=== PATIENT | male | born 1980 | race American Indian/Alaskan Native ===

== ENCOUNTER 2016-12-02 18:43 | Emergency (ER) | payer SELFPAY ==
[2016-12-02 19:02] VITALS: BP 154/100
== END 2016-12-02 20:10 | disposition left against medical advice (07) ==
LOC: ED 18:43
DX: R07.9 Chest pain, unspecified (principal); R10.9 Unspecified abdominal pain; Z53.21 Procedure and treatment not carried out due to patient leaving prior to being seen by health care provider